=== PATIENT | male | born 1995 | race African-American/Black ===

== ENCOUNTER 2023-03-13 18:21 | Emergency (ER) | payer SELFPAY ==
[2023-03-13 19:23] VITALS: BP 127/68; PULSE 96; RESP 18; TEMP 36.9; O2SAT 99; BMI 24.0
--- NOTE | 2023-03-13 21:19 | ED.EXTPRO ---
HPI - Extremity Problem General Chief complaint: Extremity Injury, Lower Stated complaint: hurts to walk Time Seen by Provider: 03/13/23 20:41 Source: patient Mode of arrival: ambulatory Limitations: no limitations History of Present Illness HPI Narrative: 27 yo male with PMH of ETOH use - states he drinks 3 to 4 large beers a day. His last drink was yesterday he now has upper thigh cramps. He states this has happened before. He denies trauma, working out, viral syndrome. States he is dehydrated and doesn't feel well and thinks he needs fluids. He does not want detox. He has never had a withdrawal seizure in the past MD Complaint: extremity pain Onset (ago): hour(s) (2) Pain Consistency: constant Location: left, right and lower extremity Quality: aching and constant Radiation: none Relieving factors: nothing Exacerbating factors: walking and palpation Associated symptoms: denies other symptoms Context: other (ETOH use) Related Data Allergies Allergy/AdvReac Type Severity Reaction Status Date / Time No Known Allergies Allergy Verified 03/13/23 21:00 Review of Systems Review of Systems: Constitutional : No Fever, No Chills ENT/Mouth : No Ear Pain, No Hoarseness, No sore throat Eyes: No Eye Pain, No Swelling, No Redness, No Foreign Body Cardiovascular : No Chest Pain, No SOB Respiratory : No Cough, No Dyspnea Gastrointestinal : No Nausea, No Vomiting, No Diarrhea, No abdominal Pain Genitourinary : No Dysuria, No Hematuria Musculoskeletal : positive joint pain, pos Myalgias, No Joint Swelling Skin : No Skin lacerations, No rash Neuro : No Weakness, No Numbness, No Loss of Consciousness, No Dizziness, No Headache Psych : No Anxiety/Panic, No Depression All other systems reviewed and are negative [facility] Past Medical History Attestation statement: The following information was validated with the patient. Source: old records reviewed Medical History Alcohol abuse Social History Social History (Updated 03/13/23 @ 21:23 by Marcia Gaspar DO) Alcohol intake: current Patient Tobacco Use Status: Never used Tobacco Smoked in Last 30 Days: Yes Use of substances other than those prescribed or required for medical reasons: No Advance Directives: No Advance Directives Information Provided: No Physical Exam Vital Signs: Vital Signs: Last Vital Signs Temp 98.5 F 03/13/23 19:23 Pulse 96 03/13/23 19:23 Resp 18 03/13/23 19:23 BP 127/68 03/13/23 19:23 Pulse Ox 99 03/13/23 19:23 O2 Del Method Room Air 03/13/23 19:23 BMI result Body Mass Index 24.0 Appearance: Alert. Oriented X3. No acute distress. Eyes: Pupils equal, round and reactive to light. ENT: Pharynx normal. Neck: Normal inspection. Neck supple. CVS: Normal heart rate and rhythm. Pulses normal. Respiratory: No respiratory distress. Breath sounds normal. Abdomen: Soft and non-tender. Skin: Skin warm and dry. Normal skin color. Normal skin turgor. Extremities: No lower extremity edema. distal NV intact Neuro: Oriented X 3. No motor deficit. No sensory deficit. Course Course Course Narrative: signed out to Dr. Dang pending labs and work up Medical Decision Making Medical Decision Making [facility] Narrative: 27 yo male with PMH of ETOH abuse here with c/o leg cramps he has no signs of withdrawal at this time will need labs, IVF, IV magnesium - he is distal NV intact, no signs of infection, compartments are soft and compressible - doubt trauma. Differential Diagnosis Differential Diagnoses: The differential diagnosis associated with the presentation includes rhabdo, lyte abnormality, dehydration Admission/Observation Consideration of admission/observation: Escalation of care including admission/observation considered Lab Data [facility] Lab Attestation statement: I reviewed the patient's lab results. Discharge Plan Discharge Clinical Impression: Myalgia Instructions: Musculoskeletal Pain (ED) Additional Instructions: stay hydrated drink plenty of fluids, avoid alcohol return for worsening pain, vomiting, fevers or any other concerns. Stand Alone Forms: Work/School Release
[2023-03-13] MEDS: 0.9 % Sodium Chloride 1,000 ML 999 ML IV (21:49)
[2023-03-13] MEDS: Magnesium Sulfate/H2O 2 GM/50 ML PIGGYBACK IV (21:49)
[2023-03-13 21:51] LABS: MANUAL DIFF FLAG NO
[2023-03-13 21:53] LABS: Basophils Percent Auto 0.4 % (0-2); Eosinophils Percent Auto 0.1 % (0-4); Hematocrit 40.4 % (42.0-52.0); Hemoglobin 13.6 g/dl (14.0-18.0); Imm Gran Abs Auto 0.03 X10*3/uL (0.00-0.03); Imm Gran Pct Auto 0.3 % (0.0-0.4); Lymphocytes Absolute Auto 2.1 X10*3/uL (1.2-4.9); Lymphocytes Percent Auto 22.6 % (20-40); Mean Corpuscular HGB Conc 33.7 g/dl (31.0-36.0); Mean Corpuscular Hemoglobin 29.2 pg (27.0-33.0); Mean Corpuscular Volume 86.9 fL (80.0-98.0); Mean Platelet Volume 10.6 fL (9.4-12.4); Monocytes Absolute Auto 0.7 X10*3/uL (0.1-1.2); Monocytes Percent Auto 8.1 % (2-11); Neutrophils Absolute Auto 6.2 x10*3/uL (2.0-8.3); Neutrophils Percent Auto 68.5 % (45-73); Platelet Count 185 X10*3/uL (160-400); Red Blood Count 4.65 X10*6/uL (4.60-5.80); Red Cell Distribution Width 13.3 % (11.0-16.0); White Blood Count 9.1 X10*3/uL (4.8-10.8)
[2023-03-13 22:15] VITALS: BP 126/70; PULSE 90; RESP 18; TEMP 37; O2SAT 99
[2023-03-13 22:15] LABS: Alanine Aminotransferase 15 U/L (0-40); Albumin Level 4.5 g/dL (3.5-5.0); Alkaline Phosphatase 76 U/L (39-117); Anion Gap 17 (12-20); Aspartate Amino Transferase 36 U/L (5-37); Bilirubin Direct 0.1 mg/dL (0.0-0.5); Bilirubin Total 0.4 mg/dL (0.0-1.0); Blood Urea Nitrogen 14 mg/dL (9-16); Calcium 9.1 mg/dL (8.4-10.2); Carbon Dioxide 23 mmol/L (22-29); Chloride 102 mmol/L (96-108); Creatinine Clr Calc Pharmacy 105.5; Estimated Glomerular Filt Rate > 60; Ethanol < 10 mg/dL; Glucose Random 78 mg/dL (60-115); Magnesium 1.7 mg/dL (1.6-2.6); Potassium 4.5 mmol/L (3.3-5.1); Sodium 137 mmol/L (135-145); Total Protein 8.2 g/dL (6.5-8.0)
[2023-03-14 00:50] VITALS: BP 132/88; PULSE 78; RESP 18; TEMP 36.9; O2SAT 97
== END 2023-03-14 00:50 | disposition home or self-care (01) ==
PROVIDERS: Emergency Medicine; Emergency Provider Internal Medicine
DX: M79.10 Myalgia, unspecified site (principal); Z79.899 Other long term (current) drug therapy
CPT/HCPCS: 36415; 80048; 80076; 80307; 82550; 83735; 85025; 96361; 96374; 99284; J3475

== ENCOUNTER 2024-06-10 05:31 | Emergency (ER) | payer MEDICAID, SELFPAY ==
[2024-06-10 05:34] VITALS: BP 122/72; PULSE 99; RESP 16; TEMP 36.1; O2SAT 100; BMI 23.6
[2024-06-10 05:56] VITALS: BP 145/85; PULSE 88; RESP 16; TEMP 36.7; O2SAT 100
[2024-06-10 06:00] LABS: MANUAL DIFF FLAG NO
[2024-06-10 06:01] LABS: Basophils Absolute Auto 0.1 X10*3/uL (0.0-0.2); Basophils Percent Auto 0.4 % (0-2); Eosinophils Absolute Auto 0.2 X10*3/uL (0.0-0.4); Eosinophils Percent Auto 1.5 % (0-4); Hematocrit 41.2 % (42.0-52.0); Hemoglobin 13.8 g/dl (14.0-18.0); Imm Gran Abs Auto 0.04 X10*3/uL (0.00-0.03); Imm Gran Pct Auto 0.4 % (0.0-0.4); Lymphocytes Percent Auto 17.7 % (20-40); Mean Corpuscular HGB Conc 33.5 g/dl (31.0-36.0); Mean Corpuscular Volume 86.6 fL (80.0-98.0); Mean Platelet Volume 10.2 fL (9.4-12.4); Monocytes Absolute Auto 0.7 X10*3/uL (0.1-1.2); Monocytes Percent Auto 6.3 % (2-11); Neutrophils Absolute Auto 8.3 x10*3/uL (2.0-8.3); Neutrophils Percent Auto 73.7 % (45-73); Platelet Count 275 X10*3/uL (160-400); Red Blood Count 4.76 X10*6/uL (4.60-5.80); Red Cell Distribution Width 13.6 % (11.0-16.0); White Blood Count 11.3 X10*3/uL (4.8-10.8)
[2024-06-10 06:19] LABS: Alanine Aminotransferase 11 U/L (0-40); Albumin Level 4.3 g/dL (3.5-5.0); Alkaline Phosphatase 75 U/L (39-117); Anion Gap 14 (12-20); Aspartate Amino Transferase 23 U/L (5-37); Bilirubin Total 0.2 mg/dL (0.0-1.0); Blood Urea Nitrogen 10 mg/dL (9-16); Calcium 9.1 mg/dL (8.4-10.2); Carbon Dioxide 25 mmol/L (22-29); Chloride 106 mmol/L (96-108); Creatinine Clr Calc Pharmacy 131.9; Estimated Glomerular Filt Rate > 60; Ethanol < 10 mg/dL; Glucose Random 85 mg/dL (60-115); Magnesium 2.1 mg/dL (1.6-2.6); Potassium 3.8 mmol/L (3.3-5.1); Sodium 141 mmol/L (135-145); Total Protein 7.1 g/dL (6.5-8.0)
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
[2024-06-10] MEDS: Acetaminophen 325 MG TABLET 975 MG PO (08:15)
[2024-06-10] MEDS: Bacitracin Oint 0.9 GM PACKET 2 APPL TOPICAL (08:16)
[2024-06-10] MEDS: Ibuprofen 400 MG TABLET PO (08:16)
--- NOTE | 2024-06-10 08:25 | PC.NURSE ---
Patient medicated as ordered leg/foot pain. Topical meds applied to upper inner buttocks for wounds. Patient took meds with applesauce
[2024-06-10 08:56] LABS: Appearance Urine Clear; Color Urine Yellow; Glucose Urine UA Negative (Negative); Leukocyte Esterase Urine Small (1+) (Negative); Nitrite Urine Negative (Negative); Specific Gravity - Urine 1.015 (1.005-1.025); UMIC TRIGGER UACC YES; Urine Blood Negative (Negative); Urine Ketones Negative (Negative); Urine Protein Negative (Neg-Trace)
[2024-06-10 09:03] LABS: Amphetamine Screen Urine Not Detected (Not Detect); Barbiturates, Urine Not Detected (Not Detect); Benzodiazepines Screen Urine Not Detected (Not Detect); Buprenorphine Scr Not Detected (Not Detect); Cannabinoid Screen Urine Not Detected (Not Detect); Cocaine Screen Urine POSITIVE (Not Detect); Fentanyl, urine Not Detected (Not Detect); Methadone Screen, Urine Not Detected (Not Detect); Opiate Screen Urine Not Detected (Not Detect); Oxycodone Screen Urine Not Detected (Not Detect); Phencyclidine Screen Urine Not Detected (Not Detect)
[2024-06-10 09:05] LABS: Bacteria Urine None Seen (None Seen); Hyaline Casts Urine 0-2 /LPF (0-2); RBC Urine 0-2 /HPF (0-2); Squamous Epithelial Cell Urine 0-2 /HPF (0-2); UACC Culture Trigger YES; WBC Urine 0-5 /HPF (0-5)
[2024-06-10 09:09] VITALS: BP 111/58; PULSE 83; RESP 22; O2SAT 98
--- NOTE | 2024-06-10 10:57 | MHC.RECOVRN ---
Pts referral sent to [facility].
--- NOTE | 2024-06-10 11:10 | PC.NURSE ---
Report received. Taken over care at this time.
--- NOTE | 2024-06-10 12:45 | MHC.RECOVRN ---
[facility] not [facility] availability. Met with pt in [id number] to discuss. Pt laying on stretcher, blanket over head. Takes some encouraging for pt to remove blanket. Very difficult to engage in conversation. Pts BAL <10 upon arrival to ED, is not experiencing alcohol withdrawal. Pt reports cocaine use approx 4 times weekly. It is unlikely [facility] would accept pt regardless due to lack of alcohol withdrawal symptoms and occasional cocaine use. Informed pt [facility] not have bed availability. Educated pt on eligibility for [facility]. Encouraged pt to present as walk in to [facility] tomorrow morning if needed. Provided pt with written resources including inpatient and outpatient treatment, [facility], recovery coaching, as well as t/w contact information if needed. Pt denies questions or concerns at this time. Discussed with ED provider and RN.
[2024-06-10 13:30] VITALS: BP 111/58; PULSE 83; RESP 22; TEMP 36.7; O2SAT 98
== END 2024-06-10 13:32 | disposition home or self-care (01) ==
PROVIDERS: Emergency Provider Emergency Medicine
DX: F32.A Depression, unspecified (principal); F19.10 Other psychoactive substance abuse, uncomplicated; M79.672 Pain in left foot; M79.671 Pain in right foot; Z59.00 Homelessness unspecified; F14.10 Cocaine abuse, uncomplicated; F10.20 Alcohol dependence, uncomplicated; Y90.0 Blood alcohol level of less than 20 mg/100 ml; S30.810A Abrasion of lower back and pelvis, initial encounter; Y04.8XXA Assault by other bodily force, initial encounter; Y93.9 Activity, unspecified; Y92.410 Unspecified street and highway as the place of occurrence of the external cause; Y99.9 Unspecified external cause status
CPT/HCPCS: 36415; 80053; 80307; 81001; 82550; 83735; 85025; 87086; 99284; S9485